=== PATIENT | female | born 1965 ===

== ENCOUNTER 2018-08-11 08:17 | Emergency (ER) | payer OTHER ==
--- NOTE | 2018-08-11 09:10 | C.PDOC ---
History Of Present Illness 53 y/o female presents to the ED complaining of 3 week history of cough and nasal congestion. She now complaints of chest and upper back pain with coughing. Otherwise denies any fever, chills, or SOB. Time Seen by Provider: 08/11/18 08:31 Chief Complaint (Nursing): Cough, Cold, Congestion History Per: Patient History/Exam Limitations: no limitations Onset/Duration Of Symptoms: Days Current Symptoms Are (Timing): Still Present Associated Symptoms: Cough, Nasal Congestion Past Medical History Reviewed: Historical Data, Nursing Documentation, Vital Signs Vital Signs: Last Vital Signs Temp 98.1 F 08/11/18 08:19 Pulse 86 08/11/18 08:19 Resp 18 08/11/18 08:19 BP 115/61 08/11/18 08:19 Pulse Ox 99 08/11/18 08:19 - Medical History PMH: No Chronic Diseases Family History: States: Unknown Family Hx - Social History Hx Alcohol Use: No Hx Substance Use: No - Immunization History Hx Tetanus Toxoid Vaccination: No Hx Influenza Vaccination: No Hx Pneumococcal Vaccination: No Review Of Systems Constitutional: Negative for: Fever, Chills ENT: Positive for: Nose Congestion Cardiovascular: Negative for: Chest Pain Respiratory: Positive for: Cough. Negative for: Shortness of Breath Gastrointestinal: Negative for: Nausea, Vomiting Genitourinary: Negative for: Incontinence Physical Exam - Physical Exam Appears: Non-toxic, No Acute Distress Skin: Warm, Dry Head: Atraumatic, Normacephalic Eye(s): bilateral: Normal Inspection, PERRL, EOMI Oral Mucosa: Moist Neck: Normal ROM Chest: Symmetrical Cardiovascular: Rhythm Regular, No Murmur Respiratory: Normal Breath Sounds, No Accessory Muscle Use, No Rhonchi, No Wheezing Gastrointestinal/Abdominal: Soft, No Tenderness, No Distention Extremity: Bilateral: Atraumatic, Normal Color And Temperature, Normal ROM Pulses: Left Radial: Normal, Right Radial: Normal Neurological/Psych: Oriented x3, Normal Speech ED Course And Treatment O2 Sat by Pulse Oximetry: 99 (RA) Pulse Ox Interpretation: Normal - Other Rad Chest X-Ray X-Ray: Read By Radiologist Interpretation: Accession No. : [id number]. Patient Name / ID : ELLEN RADHA / [id number]. Exam Date : 08/11/2018 08:49:51 ( Approved ). Study Comment : Sex / Age : F / 53Y. Creator : albert bob. Dictator : Shell Gleason MD. Sas Sql Developer : Director Of Counterintelligence : Shell Gleason MD. Approver2 : Report Date : 08/11/2018 08:56:57. My Comment : . HISTORY: cough/congestion. COMPARISON: None available. TECHNIQUE: Chest PA and lateral. FINDINGS: LUNGS: No focal consolidation. Please note that chest x-ray has limited sensitivity for the detection of pulmonary masses. PLEURA: No significant pleural effusion identified. No definite pneumothorax . CARDIOVASCULAR: Heart size appears within normal limits. No atherosclerotic calcification present. OSSEOUS STRUCTURES: No acute osseous abnormality identified. VISUALIZED UPPER ABDOMEN: Unremarkable. OTHER FINDINGS: None. IMPRESSION: No focal consolidation. Medical Decision Making Medical Decision Making: Impression: Bronchitis Plan: - Chest x-ray - 600 mg PO Motrin - 500 mg PO Zithromax - 30 mg Sudafed tab - Reassess after meds CXR is negative. Patient is stable for discharge, provided with RX meds to go home with. Disposition Counseled Patient/Family Regarding: Studies Performed, Diagnosis, Need For Followup, Rx Given - Disposition Referrals: [facility] [Outside] Disposition: HOME/ ROUTINE Disposition Time: 09:06 Condition: STABLE Additional Instructions: follow up with your doctor within 2 days call to make an appointment take medications as prescribed return to ER if symptoms worsens or progress Prescriptions: Azithromycin [Zithromax] 250 mg PO DAILY #4 tab Pseudoephedrine HCl [Sudafed] 30 mg PO QID PRN #15 tablet PRN Reason: Nasal Congestion Instructions: Acute Bronchitis Forms: Gen Discharge Inst Estonian, [facility] (Estonian), Work Excuse Print Language: KOREAN - Clinical Impression Clinical Impression: Bronchitis - Scribe Statement The provider has reviewed the documentation as recorded by the Moon Adams Provider Attestation: All medical record entries made by the Scribe were at my direction and personally dictated by me. I have reviewed the chart and agree that the record accurately reflects my personal performance of the history, physical exam, medical decision making, and the department course for this patient. I have also personally directed, reviewed, and agree with the discharge instructions and disposition.
--- NOTE | 2018-08-11 09:39 | RAD ---
HISTORY: cough/congestion COMPARISON: None available. TECHNIQUE: Chest PA and lateral FINDINGS: LUNGS: No focal consolidation. Please note that chest x-ray has limited sensitivity for the detection of pulmonary masses. PLEURA: No significant pleural effusion identified. No definite pneumothorax . CARDIOVASCULAR: Heart size appears within normal limits. No atherosclerotic calcification present. OSSEOUS STRUCTURES: No acute osseous abnormality identified. VISUALIZED UPPER ABDOMEN: Unremarkable. OTHER FINDINGS: None. IMPRESSION: No focal consolidation.
[2018-08-11 09:54] VITALS: BP 107/78; PULSE 67; RESP 17; TEMP 98.5
[2018-08-11 09:57] VITALS: O2SAT 99
== END 2018-08-11 10:00 | disposition home or self-care (01) ==
LOC: C.ER 08:17
DX: J40 Bronchitis, not specified as acute or chronic (principal)

== ENCOUNTER 2018-08-18 20:13 | Emergency (ER) | payer OTHER ==
[2018-08-18 20:24] VITALS: BMI 31.2
[2018-08-18 20:30] VITALS: O2SAT 100
--- NOTE | 2018-08-18 20:41 | C.PDOC ---
History Of Present Illness 53 year old female presents to ED with complaint of digitally reproducible pain on the right para-sternal border for 1 day. She was last seen 08/11/18 for a cough, but the cough has since resolved. Normal X-rays and labs the last time she was at [facility] ED. Patient states she is repeatedly lifting a small baby. Patient denies SOB and sternal chest pressure. Time Seen by Provider: 08/18/18 20:35 Chief Complaint (Nursing): Chest Pain History Per: Patient History/Exam Limitations: no limitations Onset/Duration Of Symptoms: Days (1) Current Symptoms Are (Timing): Still Present Quality: "Pain" Associated Symptoms: denies: Other (SOB, para-sternal chest pressure) Past Medical History Reviewed: Historical Data, Nursing Documentation, Vital Signs Vital Signs: Last Vital Signs Temp 98.1 F 08/18/18 20:24 Pulse 82 08/18/18 20:36 Resp 18 08/18/18 20:24 BP 140/88 08/18/18 20:24 Pulse Ox 100 08/18/18 20:24 - Medical History PMH: No Chronic Diseases Surgical History: No Surg Hx Family History: States: Unknown Family Hx - Social History Hx Alcohol Use: No Hx Substance Use: No - Immunization History Hx Tetanus Toxoid Vaccination: No Hx Influenza Vaccination: No Hx Pneumococcal Vaccination: No Review Of Systems Constitutional: Negative for: Fever, Chills, Weakness Cardiovascular: Positive for: Chest Pain (right para-sternal) Respiratory: Negative for: Shortness of Breath Neurological: Negative for: Weakness, Numbness, Dizziness Physical Exam - Physical Exam Appears: Well, Non-toxic, No Acute Distress Skin: Normal Color, Warm, Dry Head: Atraumatic, Normacephalic Neck: Normal ROM, Supple Chest: Tenderness (digitally reproducible tenderness to the right para-sternal border, T3) Respiratory: No Accessory Muscle Use, No Rales, No Rhonchi, No Wheezing Gastrointestinal/Abdominal: Soft, No Tenderness Extremity: Capillary Refill (<2 seconds) Extremity: Bilateral: Atraumatic, Normal Color And Temperature Pulses: Left Radial: Normal, Right Radial: Normal Neurological/Psych: Oriented x3, Normal Speech, Normal Cognition ED Course And Treatment ECG: Interpreted By Me ECG Rhythm: Sinus Rhythm ECG Interpretation: Normal Rate From EC O2 Sat by Pulse Oximetry: 100 Progress Note: Patient given Ibuprofen PO. Upon reassessment, patient is resting comfortably, in no distress, and is stable for discharge. Patient is advised to follow up with clinic within 1-2 days. Patient is advised to return to ED if symptoms persist or worsen. Medical Decision Making Medical Decision Making: costochondritis R parasternal boarder lifting babies clear lungs, normal ekg, normal VS Disposition Doctor Will See Patient In The: Office Counseled Patient/Family Regarding: Studies Performed, Diagnosis - Disposition Referrals: [facility] [Outside] [facility] [Outside] [facility] [Outside] [facility] [Outside] Disposition: HOME/ ROUTINE Disposition Time: 20:40 Condition: GOOD Additional Instructions: [place] 1/2 hora por hora, nada caliente ibuprofeno 400-600 mg cada 6 horas elizabeth necessario no levanta nada pesada por 1 semana EKG normal Instructions: Costochondritis Forms: [facility] (Jordanian) Print Language: ENGLISH - Clinical Impression Clinical Impression: Chest wall discomfort - Scribe Statement The provider has reviewed the documentation as recorded by the Scribe (Daylin Roper) All medical record entries made by the Scribe were at my direction and personally dictated by me. I have reviewed the chart and agree that the record accurately reflects my personal performance of the history, physical exam, medical decision making, and the department course for this patient. I have also personally directed, reviewed, and agree with the discharge instructions and disposition.
[2018-08-18 21:00] VITALS: BP 128/78; PULSE 98; RESP 17; TEMP 98.2
--- NOTE | 2018-08-27 11:43 | CARD ---
APPROVED REPORT Date of service: 08/18/2018 EKG Measurement Heart [id number] <Conclusion> Normal sinus rhythm Normal ECG
== END 2018-08-18 20:57 | disposition home or self-care (01) ==
LOC: C.ER 20:13
DX: R07.89 Other chest pain (principal)